=== PATIENT | female | born 1980 | race Caucasian/White ===

== ENCOUNTER 2017-07-11 | Inpatient (IN) | payer MEDICAID ==
[~2017-07-11] VITALS: Ht 162.6 cm; Wt 81.1 kg
[2017-07-11 00:56] LABS: MICROSCOPIC INDICATED
[2017-07-11 00:57] LABS: AMPHETAMINE SCREEN, URINE Positive (Negative); BARBITURATE SCREEN, URINE Negative (Negative); BENZODIAZEPINE SCREEN, URINE Negative (Negative); CANNABINOID SCREEN, URINE Negative (Negative); COCAINE SCREEN, URINE Negative (Negative); METHADONE SCREEN, URINE Negative (Negative); OPIATE SCREEN, URINE Negative (Negative); PROTEIN/CREATININE RATIO,URINE 237 (0-200); TOTAL PROTEIN,URINE RANDOM 14 mg/dL (0-12)
[2017-07-11 00:58] LABS: ALANINE AMINOTRANSFERASE 10 U/L (12-78); ALBUMIN 2.1 g/dL (3.4-5.0); ANION GAP 8 mmol/L (5-15); BILIRUBIN, DIRECT 0.1 mg/dL (0.1-0.2); CALCIUM 7.9 mg/dL (8.5-10.1); CHLORIDE 109 mmol/L (98-107); CREATININE 0.58 mg/dL (0.55-1.02)
[2017-07-11 01:01] LABS: BASOPHILS # (AUTO) 0.05 x10^3/uL (0-0.1); BASOPHILS % (AUTO) 1 % (0-1); EOSINOPHILS # (AUTO) 0.03 x10^3/uL (0-0.4); EOSINOPHILS % (AUTO) 0 % (1-7); LYMPHOCYTES # (AUTO) 1.49 x10^3/uL (1-3.4); LYMPHOCYTES % (AUTO) 15 % (22-44); MEAN CORPUSCULAR VOLUME 61.3 fL (80-100); MEAN PLATELET VOLUME 9.3 fL (7.4-10.4); MONOCYTES # (AUTO) 0.66 x10^3/uL (0.2-0.8); MONOCYTES % (AUTO) 7 % (2-9); NEUTROPHILS # (AUTO) 7.51 x10^3/uL (1.8-6.8); NEUTROPHILS % (AUTO) 77 % (42-75); PLATELET COUNT 218 x10^3/uL (130-400); RED BLOOD COUNT 3.76 x10^6/uL (3.82-5.3); RED CELL DISTRIBUTION WIDTH 19.8 % (9.6-15.2)
[2017-07-11 01:02] LABS: MD MORPH REVIEW ONLY
[2017-07-11 01:03] LABS: POLYCHROMASIA 1+
[2017-07-11 01:04] LABS: ALKALINE PHOSPHATASE 178 U/L (45-117); BILIRUBIN,TOTAL 0.4 mg/dL (0.2-1.0); OVALOCYTES 1+; TEAR DROPS 1+; TOTAL PROTEIN 5.9 g/dL (6.4-8.2)
[2017-07-11 01:05] LABS: ANISOCYTOSIS 1+
[2017-07-11 01:07] LABS: <PLATELET ESTIMATE> ADEQUATE; LARGE PLATELETS 1+; MICROCYTOSIS 1+
[2017-07-11 01:10] VITALS: BP 144/93
[2017-07-11] MEDS ORDERED: NITROFURANTOIN (MACROBID) 100 MG CAPSULE ONE ×2 (02:52→21:06)
[2017-07-11] MEDS: NITROFURANTOIN (MACROBID) 100 MG CAPSULE PO SCH ×3 (02:57→21:07)
[2017-07-11] MEDS: IRON SUCROSE COMPLEX 100MG/5ML IV SCH (08:54)
[2017-07-11 13:59] LABS: MEAN CORPUSCULAR HEMOGLOBIN 19.6 pg (27.0-34.8); MEAN CORPUSCULAR HGB CONC 32.2 g/dL (32.4-35.8); MEAN CORPUSCULAR VOLUME 60.9 fL (80-100); MEAN PLATELET VOLUME 9.4 fL (7.4-10.4); PLATELET COUNT 224 x10^3/uL (130-400); RED BLOOD COUNT 3.64 x10^6/uL (3.82-5.3); RED CELL DISTRIBUTION WIDTH 20.6 % (9.6-15.2)
[2017-07-11 14:07] LABS: ALANINE AMINOTRANSFERASE 10 U/L (12-78); ANION GAP 10 mmol/L (5-15); BILIRUBIN, DIRECT 0.1 mg/dL (0.1-0.2); CALCIUM 7.3 mg/dL (8.5-10.1); CHLORIDE 109 mmol/L (98-107); CREATININE 0.65 mg/dL (0.55-1.02)
[2017-07-11 14:09] LABS: ALKALINE PHOSPHATASE 173 U/L (45-117); BILIRUBIN,TOTAL 0.3 mg/dL (0.2-1.0); TOTAL PROTEIN 5.7 g/dL (6.4-8.2)
[2017-07-11 14:18] LABS: MD YES
[2017-07-11 14:21] LABS: ANISOCYTOSIS 1+; BASOS#(MANUAL) 0.09 x10^3/uL (0-0.1); BASOS% (MANUAL) 1 % (0-1); LYMPH#(MANUAL) 1.18 x10^3/uL (1-3.4); LYMPHS% (MANUAL) 13 % (22-44); MONOS#(MANUAL) 0.36 x10^3/uL (0.3-2.7); MONOS% (MANUAL) 4 % (2-9); NRBC % (MANUAL) 4 % (0-1); SEG#(MANUAL) 7.46 x10^3/uL (1.8-6.8); SEGS% (MANUAL) 82 % (42-75)
[2017-07-11 14:22] LABS: HYPOCHROMIA 1+; MICROCYTOSIS 1+
[2017-07-11 14:23] LABS: OVALOCYTES 1+; POLYCHROMASIA 1+; TEAR DROPS 1+
[2017-07-11 14:24] LABS: <PLATELET ESTIMATE> ADEQUATE; LARGE PLATELETS 1+
[2017-07-11 19:12] VITALS: BP 132/63
[2017-07-11] MEDS ORDERED: CALCIUM CARBONATE 500 MG TAB.CHEW ONE (19:13)
[2017-07-11] MEDS: CALCIUM CARBONATE 500 MG TAB.CHEW PO PRN (19:15)
[2017-07-12] MEDS: D5%-0.45% NACL 1,000 ML IV SCH ×3 (01:22→23:30)
[2017-07-12 05:20] LABS: MEAN CORPUSCULAR HEMOGLOBIN 19.1 pg (27.0-34.8); MEAN CORPUSCULAR HGB CONC 30.5 g/dL (32.4-35.8); MEAN CORPUSCULAR VOLUME 62.6 fL (80-100); MEAN PLATELET VOLUME 9.3 fL (7.4-10.4); PLATELET COUNT 175 x10^3/uL (130-400); RED BLOOD COUNT 3.96 x10^6/uL (3.82-5.3); RED CELL DISTRIBUTION WIDTH 19.3 % (9.6-15.2)
[2017-07-12 05:48] LABS: CHLORIDE 110 mmol/L (98-107)
[2017-07-12 06:08] LABS: MD YES
[2017-07-12 06:10] LABS: BASOS#(MANUAL) 0.11 x10^3/uL (0-0.1); BASOS% (MANUAL) 1 % (0-1); LYMPH#(MANUAL) 1.33 x10^3/uL (1-3.4); LYMPHS% (MANUAL) 12 % (22-44); MONOS#(MANUAL) 0.33 x10^3/uL (0.3-2.7); MONOS% (MANUAL) 3 % (2-9); NRBC % (MANUAL) 2 % (0-1); SEG#(MANUAL) 9.32 x10^3/uL (1.8-6.8); SEGS% (MANUAL) 84 % (42-75)
[2017-07-12 06:11] LABS: ANISOCYTOSIS 1+; MICROCYTOSIS 1+
[2017-07-12 06:12] LABS: <PLATELET ESTIMATE> ADEQUATE; HYPOCHROMIA 1+; LARGE PLATELETS 1+; OVALOCYTES 1+; POLYCHROMASIA 1+; TEAR DROPS 1+
[2017-07-12 06:21] LABS: ALANINE AMINOTRANSFERASE 9 U/L (12-78); ALBUMIN 2.1 g/dL (3.4-5.0); ALKALINE PHOSPHATASE 185 U/L (45-117); ANION GAP 8 mmol/L (5-15); BILIRUBIN,TOTAL 0.3 mg/dL (0.2-1.0); CALCIUM 7.5 mg/dL (8.5-10.1); CREATININE 0.57 mg/dL (0.55-1.02); FOLATE LEVEL 10.5 ng/mL (3.1-17.5)
[2017-07-12] MEDS ORDERED: NITROFURANTOIN (MACROBID) 100 MG CAPSULE ONE ×2 (08:53→20:37)
[2017-07-12] MEDS: NITROFURANTOIN (MACROBID) 100 MG CAPSULE PO SCH ×2 (09:01→20:40)
[2017-07-12] MEDS: IRON SUCROSE COMPLEX 100MG/5ML IV SCH (09:03)
[2017-07-12 13:51] VITALS: BP 124/80
[2017-07-12 17:40] VITALS: BP 116/68
[2017-07-12] MEDS ORDERED: metroNIDAZOLE 500 MG TABLET PO ONE (19:30)
[2017-07-12] MEDS ORDERED: CALCIUM CARBONATE 500 MG TAB.CHEW ONE (20:03)
[2017-07-12] MEDS: CALCIUM CARBONATE 500 MG TAB.CHEW PO PRN (20:04)
[2017-07-13] MEDS ORDERED: ACETAMINOPHEN 325 MG TABLET ONE ×2 (01:09→20:37)
[2017-07-13] MEDS ORDERED: CALCIUM CARBONATE 500 MG TAB.CHEW ONE ×2 (01:09→20:37)
[2017-07-13] MEDS: CALCIUM CARBONATE 500 MG TAB.CHEW PO PRN ×2 (01:11→20:38)
[2017-07-13] MEDS: ACETAMINOPHEN 325 MG TABLET PO PRN ×2 (01:12→20:38)
[2017-07-13] MEDS: D5%-0.45% NACL 1,000 ML IV SCH ×3 (06:12→15:30)
[2017-07-13 06:14] LABS: BASOPHILS # (AUTO) 0.04 x10^3/uL (0-0.1); BASOPHILS % (AUTO) 0 % (0-1); EOSINOPHILS # (AUTO) 0.04 x10^3/uL (0-0.4); EOSINOPHILS % (AUTO) 0 % (1-7); LYMPHOCYTES # (AUTO) 1.42 x10^3/uL (1-3.4); LYMPHOCYTES % (AUTO) 11 % (22-44); MD NO; MEAN CORPUSCULAR HEMOGLOBIN 18.9 pg (27.0-34.8); MEAN CORPUSCULAR HGB CONC 30.5 g/dL (32.4-35.8); MONOCYTES # (AUTO) 0.71 x10^3/uL (0.2-0.8); MONOCYTES % (AUTO) 6 % (2-9); NEUTROPHILS # (AUTO) 10.69 x10^3/uL (1.8-6.8); NEUTROPHILS % (AUTO) 83 % (42-75); PLATELET COUNT 240 x10^3/uL (130-400); RED BLOOD COUNT 3.99 x10^6/uL (3.82-5.3); RED CELL DISTRIBUTION WIDTH 19.9 % (9.6-15.2)
[2017-07-13 06:19] LABS: ALBUMIN 2.2 g/dL (3.4-5.0); ANION GAP 9 mmol/L (5-15); CALCIUM 7.6 mg/dL (8.5-10.1); CHLORIDE 112 mmol/L (98-107)
[2017-07-13 06:22] LABS: ALANINE AMINOTRANSFERASE 7 U/L (12-78); ALKALINE PHOSPHATASE 189 U/L (45-117); BILIRUBIN,TOTAL 0.5 mg/dL (0.2-1.0); TOTAL PROTEIN 6.1 g/dL (6.4-8.2)
[2017-07-13] MEDS ORDERED: NITROFURANTOIN (MACROBID) 100 MG CAPSULE ONE ×2 (08:30→20:59)
[2017-07-13] MEDS ORDERED: ONDANSETRON 2MG/ML, 2ML ONE (08:47)
[2017-07-13] MEDS: NITROFURANTOIN (MACROBID) 100 MG CAPSULE PO SCH ×2 (08:54→21:01)
[2017-07-13] MEDS: IRON SUCROSE COMPLEX 100MG/5ML IV SCH (08:54)
[2017-07-13] MEDS ORDERED: AZITHROMYCIN 600 MG TABLET PO ONE (09:00)
[2017-07-13] MEDS ORDERED: ONDANSETRON 2MG/ML, 2ML IVPush PRN (09:00)
[2017-07-13 10:12] VITALS: BP 116/84
[2017-07-13] MEDS ORDERED: AZITHROMYCIN 500 MG TABLET PO ONE (12:00)
[2017-07-14] MEDS ORDERED: PREN1TAB60 PO (08:17)
[2017-07-14] MEDS: NITROFURANTOIN (MACROBID) 100 MG CAPSULE PO SCH (09:00)
[2017-07-14] MEDS ORDERED: NITROFURANTOIN (MACROBID) 100 MG CAPSULE ONE (09:05)
[2017-07-14] MEDS: IRON SUCROSE COMPLEX 100MG/5ML IV SCH (09:07)
== END 2017-07-14 13:20 | disposition home or self-care (01) | DRG 781 ==
LOC: LDOP → LDIP 02:57 → OBSVTOIN 02:57 → LDIP 07-12 05:18
PROVIDERS: ADMIT Obstetrics & Gynecology; ATTEND Obstetrics & Gynecology
DX: O36.5930 Maternal care for other known or suspected poor fetal growth, third trimester, not applicable or unspecified (principal); O99.323 Drug use complicating pregnancy, third trimester; O75.3 Other infection during labor; D50.9 Iron deficiency anemia, unspecified; F15.90 Other stimulant use, unspecified, uncomplicated; B96.20 Unspecified Escherichia coli [E. coli] as the cause of diseases classified elsewhere; O09.33 Supervision of pregnancy with insufficient antenatal care, third trimester; O99.013 Anemia complicating pregnancy, third trimester; O99.333 Smoking (tobacco) complicating pregnancy, third trimester; F17.210 Nicotine dependence, cigarettes, uncomplicated; Z3A.37 37 weeks gestation of pregnancy
CPT/HCPCS: 36415; 76805; 76815; 80053; 80307; 81001; 81050; 82248; 82570; 82607; 82728; 82746; 83021; 83540; 83550; 83615; 84156; 84425; 84466; 84550; 85025; 85660; 86592; 86703; 86762; 86803; 86850; 86900; 87077; 87081; 87086; 87186; 87340; 87491; 87591; 87899; J1756; G0435

== ENCOUNTER 2017-08-02 19:17 | Outpatient (CLI) | payer MEDICAID ==
[~2017-08-02] VITALS: Ht 162.6 cm; Wt 81.8 kg
[~2017-08-02 19:17] MED LIST: PREN1TAB60 PO
[2017-08-02 19:59] LABS: MICROSCOPIC INDICATED
[2017-08-02 20:04] LABS: AMPHETAMINE SCREEN, URINE Negative (Negative); BARBITURATE SCREEN, URINE Negative (Negative); BENZODIAZEPINE SCREEN, URINE Negative (Negative); CANNABINOID SCREEN, URINE Negative (Negative); COCAINE SCREEN, URINE Negative (Negative); METHADONE SCREEN, URINE Negative (Negative); OPIATE SCREEN, URINE Negative (Negative)
== END 2017-08-02 20:20 | disposition home or self-care (01) ==
LOC: LDOP 19:17
PROVIDERS: ATTEND Obstetrics & Gynecology
DX: O09.523 Supervision of elderly multigravida, third trimester (principal); O26.893 Other specified pregnancy related conditions, third trimester; R10.9 Unspecified abdominal pain; Z3A.39 39 weeks gestation of pregnancy
CPT/HCPCS: 59025; 80307; 81001; 87086; 99211; G0463

== ENCOUNTER 2018-09-13 22:14 | Emergency (ER) | payer MEDICAID ==
[~2018-09-13] VITALS: Ht 157.5 cm; Wt 64.0 kg
[~2018-09-13 22:14] MED LIST changes: +DOCU-131 PO; +FERR324T5 PO; +IBUP-1222 PO
[2018-09-13 22:56] LABS: BASOPHILS # (AUTO) 0.04 x10^3/uL (0-0.1); BASOPHILS % (AUTO) 0 % (0-1); EOSINOPHILS # (AUTO) 0.15 x10^3/uL (0-0.4); EOSINOPHILS % (AUTO) 2 % (1-7); LYMPHOCYTES # (AUTO) 1.65 x10^3/uL (1-3.4); LYMPHOCYTES % (AUTO) 19 % (22-44); MD NO; MEAN CORPUSCULAR HEMOGLOBIN 23.7 pg (27.0-34.8); MEAN CORPUSCULAR HGB CONC 32.8 g/dL (32.4-35.8); MEAN CORPUSCULAR VOLUME 72.2 fL (80-100); MEAN PLATELET VOLUME 7.7 fL (7.4-10.4); MONOCYTES # (AUTO) 0.75 x10^3/uL (0.2-0.8); MONOCYTES % (AUTO) 9 % (2-9); NEUTROPHILS # (AUTO) 6.04 x10^3/uL (1.8-6.8); NEUTROPHILS % (AUTO) 70 % (42-75); PLATELET COUNT 305 x10^3/uL (130-400); RED BLOOD COUNT 4.42 x10^6/uL (3.82-5.3)
[2018-09-13 23:08] LABS: ALANINE AMINOTRANSFERASE 13 U/L (12-78); ALBUMIN 3.3 g/dL (3.4-5.0); ANION GAP 8 mmol/L (5-15); CALCIUM 8.2 mg/dL (8.5-10.1); CHLORIDE 109 mmol/L (98-107); CREATININE 0.53 mg/dL (0.55-1.02)
[2018-09-13 23:25] LABS: ALKALINE PHOSPHATASE 63 U/L (45-117); BILIRUBIN,TOTAL 0.2 mg/dL (0.2-1.0); TOTAL PROTEIN 6.6 g/dL (6.4-8.2)
--- NOTE | 2018-09-14 00:15 | NUR ---
10 WEEKS NOW CRAMPING WENT FOR ON FRIDAY BUT DR HENLEY OFFICE DECLINED TO PREFORM D/T MEDICAL HISTORY, PT DOES NOT KNOW WHY. CURRENTLY C/O OF CRAMPING, DENIES BLEEDING
--- NOTE | 2018-09-14 00:50 | NUR ---
PT RESTING WITH EYES CLOSED, NO DISTRESS NOTED
[2018-09-14 01:07] LABS: CULTURE INDICATED? YES; MICROSCOPIC INDICATED
[2018-09-14 01:31] VITALS: BP 102/70
--- NOTE | 2018-09-14 01:43 | NUR ---
Patient/Caregiver given discharge instructions and they have confirmed that they understand the instructions. Patient ambulatory with steady gait.
== END 2018-09-14 01:45 | disposition home or self-care (01) ==
LOC: ED 09-14 00:20
DX: O26.891 Other specified pregnancy related conditions, first trimester (principal); R10.2 Pelvic and perineal pain; Z3A.12 12 weeks gestation of pregnancy
CPT/HCPCS: 36415; 76801; 80053; 81001; 84702; 85025; 86901; 87086; 99284